=== PATIENT | male | born 1945 | race Caucasian/White ===

== ENCOUNTER 2022-01-17 14:16 | Inpatient (IN) | payer MEDICARE, OTHER ==
[~2022-01-17] VITALS: Ht 165.1 cm; Wt 83.0 kg
[2022-01-17] MEDS ORDERED: IBUPROFEN 600 MG TABLET ONE (14:41)
[2022-01-17] MEDS ORDERED: ACETAMINOPHEN ES 500 MG TABLET ONE (14:41)
--- NOTE | 2022-01-17 14:47 | NUR ---
ALEJANDRO DAUGHTER [phone]
[2022-01-17] MEDS ORDERED: IV NS 0.9% 1,000 ML BAG IV ONE ×2 (15:00→16:30)
[2022-01-17] MEDS ORDERED: ACETAMINOPHEN ES 500 MG TABLET PO ONE (15:00)
[2022-01-17] MEDS ORDERED: IBUPROFEN 600 MG TABLET PO ONE (15:00)
[2022-01-17 15:04] LABS: BASOPHILS # (AUTO) 0.1 K/uL (0.0-0.2); BASOPHILS % (AUTO) 0.5 % (0.0-2.0); HEMATOCRIT 51 % (39-51); HEMOGLOBIN 16.7 g/dL (13.5-17.5); LYMPHOCYTES # (AUTO) 1.7 K/uL (0.8-4.8); LYMPHOCYTES % (AUTO) 13.9 % (20.0-44.0); MEAN CORPUSCULAR HGB CONC 33 g/dl (31.0-36.0); MEAN CORPUSCULAR VOLUME 92 fL (80-96); MONOCYTES # (AUTO) 0.8 K/uL (0.1-1.30); MONOCYTES % (AUTO) 6.7 % (2.0-12.0); NEUTROPHILS # (AUTO) 9.7 K/uL (1.8-8.9); NEUTROPHILS % (AUTO) 78.9 % (43.0-81.0); PLATELET COUNT (AUTO) 122 K/uL (150-450); WHITE BLOOD COUNT (AUTO) 12.3 K/uL (4.3-11.0)
--- NOTE | 2022-01-17 15:04 | NUR ---
COVID SWAB COLLECTED AND SENT TO LAB
[2022-01-17 15:14] LABS: CALCIUM, SERUM 9.6 mg/dL (8.5-10.1); CARBON DIOXIDE 30 mmol/L (21-32); CHLORIDE 100 mmol/L (98-107); CREATININE 1.2 mg/dL (0.6-1.3); GLUCOSE 150 mg/dL (74-106); POTASSIUM 3.8 mmol/L (3.5-5.1); SODIUM SERUM 138 mmol/L (136-145); UREA NITROGEN, BLOOD 32 mg/dL (7-18)
[2022-01-17 15:20] LABS: ALANINE AMINOTRANSFERASE 33 U/L (12-78); ALBUMIN 3.8 g/dL (3.4-5.0); ALKALINE PHOSPHATASE 46 U/L (46-116); ASPARTATE AMINOTRANSFERASE 28 U/L (15-37); BILIRUBIN,DIRECT 0.7 mg/dL (0.0-0.2); BILIRUBIN,TOTAL 5.6 mg/dL (0.2-1.0); TOTAL PROTEIN, SERUM 7.9 g/dL (6.4-8.2)
[2022-01-17] MEDS ORDERED: ASPI-1169 PO (15:36)
[2022-01-17] MEDS ORDERED: SIMVASTATIN (15:36)
[2022-01-17] MEDS ORDERED: B/P MED (15:36)
--- NOTE | 2022-01-17 15:45 | NUR ---
PT TAKEN TO RADIOLOGY
[2022-01-17] MEDS ORDERED: PIPERACILLIN /TAZOBACTAM 3.375 G in IV D5W 50 ML IV ONE (16:00)
--- NOTE | 2022-01-17 16:05 | NUR ---
PT UNABLE TO PROVIDE URINE AT THIS TIME; URINAL AT BEDSIDE.
[2022-01-17] MEDS ORDERED: SIMV10TA98 PO (16:28)
[2022-01-17] MEDS ORDERED: CARV12.52 PO (16:28)
--- NOTE | 2022-01-17 16:33 | NUR ---
URINE SAMPLE COLLECTED AND SENT TO LAB
[2022-01-17] MEDS ORDERED: MAG HYDROX/AL HYDROX/SIMETH 30 ML UDC PO PRN (17:00)
[2022-01-17] MEDS: SENNOSIDES/DOCUSATE SODIUM 1 TAB TABLET PO SCH (17:00)
[2022-01-17] MEDS ORDERED: TEMAZEPAM 15 MG CAPSULE PO PRN (17:00)
[2022-01-17] MEDS ORDERED: Z GUARD REMEDY 4 OZ OINT TP PRN (17:00)
[2022-01-17] MEDS ORDERED: POLYETHYLENE GLYCOL 3350 17 GM POWD.PACK PO PRN (17:00)
[2022-01-17] MEDS ORDERED: MORPHINE SULFATE INJ 2 MG/ML DISP.SYRIN IV PRN (17:00)
[2022-01-17] MEDS ORDERED: ACETAMINOPHEN 325 MG TABLET PO PRN (17:00)
[2022-01-17] MEDS ORDERED: HYDROCODONE/APAP 5/325MG TABLET PO PRN (17:00)
[2022-01-17] MEDS ORDERED: ONDANSETRON HCL/PF 4 MG/2 ML VIAL IVP PRN (17:00)
[2022-01-17] MEDS ORDERED: MAGNESIUM HYDROXIDE 30 ML UDC PO PRN (17:00)
[2022-01-17 17:49] LABS: BILIRUBIN,URINE SMALL (NEGATIVE); COLOR,URINE YELLOW (YELLOW); LEUKOCYTE ESTERASE ,URINE NEGATIVE (NEGATIVE); NITRITE, URINE NEGATIVE (NEGATIVE); PROTEIN,URINE 100 mg/dl (NEGATIVE); UGLUCOSE NEGATIVE (NEGATIVE)
[2022-01-17] MEDS: DOCUSATE SODIUM LIQ 100 MG/10 ML UDC PO SCH (18:00)
[2022-01-17 18:03] LABS: BACTERIA,URINE 1+ /HPF (None Seen); COARSE GRANULAR CASTS,URINE Few /LPF (None Seen); SQUAMOUS EPITHELIAL CELL,UR Few /HPF (None Seen); WBC,URINE 0-2 /HPF (0-3)
--- NOTE | 2022-01-17 19:44 | NUR ---
REPORT GIVEN TO KEVIN 3W RN FOR MAYRA. ALEJANDRO DAUGHTER AWARE REGARDING PT'S ADMISSION.
[2022-01-17 20:00] VITALS: BP 103/55
--- NOTE | 2022-01-17 20:00 | NUR ---
DRY CLEANER HELPERINFORMATION SYSTEMS PLANNER NOTES RECEIVED ON FROM ER THIS 76 YO MALE,ALERT,ORIENTED [id number] CHIEF COMPLAINT OF FEVER FOR FEW DAYS,DX-RIGHT LOWER LOBE PNA.WITH SALINE LOCK RIGHT AC INTACT AND PATENT.NS AT 75ML/HR RATE STARTED.WITH KNOWN HX OF FALL A MONTH AGO,NOTED DRY SMALL WOUND ON RIGHT WRIST.CLEANSE WITH WATER,PAT DRY AN LEAVE OPEN TO AIR.FALL PRECAUTION OBSERVED,BED ON LOWEST POSITION AND LOCKED,BED ALARM TRIGGERED.CALL LIGHT IN REACH,NEEDS ANTICIPATED.
--- NOTE | 2022-01-17 20:11 | NUR ---
PT TRANSFERRED TO 3W VIA ACLS PROTOCOL. VSS. ALL BELONGINGS WITH PT.
[2022-01-17] MEDS ORDERED: PIPERACILLIN /TAZOBACTAM 3.375 G VIAL IV ONE (20:48)
[2022-01-17] MEDS: PIPERACILLIN /TAZOBACTAM 3.375 G in IV D5W 50 ML IV SCH (20:59)
[2022-01-17] MEDS: IV NS 0.9% 1,000 ML IV PRN (20:59)
--- NOTE | 2022-01-17 21:00 | NUR ---
LICENSE AND PERMIT SPECIALIST NOTES DOSE OF ZOSYN 3.375GM IN IV 50ML GIVEN ORDERED.VERIFIED WITH [facility] BECAUSE DOSE WAS GIVEN IN ER AT 1600 AND SHE SAYS OKAY TO GIVE.
[2022-01-18] VITALS: BP_SYST 109; BP_SYST 111; BP_DIAS 59; BP_DIAS 73
[2022-01-18 04:00] VITALS: BP 103/71
[2022-01-18] MEDS ORDERED: PIPERACILLIN /TAZOBACTAM 3.375 G VIAL IV ONE (05:09)
[2022-01-18] MEDS: PIPERACILLIN /TAZOBACTAM 3.375 G in IV D5W 50 ML IV SCH ×3 (05:19→17:34)
[2022-01-18 05:59] LABS: BASOPHILS % (AUTO) 0.2 % (0.0-2.0); EOSINOPHILS % (AUTO) 0.4 % (0.0-6.0); HEMATOCRIT 43 % (39-51); HEMOGLOBIN 14.2 g/dL (13.5-17.5); LYMPHOCYTES # (AUTO) 1.6 K/uL (0.8-4.8); LYMPHOCYTES % (AUTO) 15.2 % (20.0-44.0); MEAN CORPUSCULAR HGB CONC 33 g/dl (31.0-36.0); MEAN CORPUSCULAR VOLUME 93 fL (80-96); MONOCYTES # (AUTO) 1.6 K/uL (0.1-1.30); MONOCYTES % (AUTO) 15.2 % (2.0-12.0); NEUTROPHILS # (AUTO) 7.2 K/uL (1.8-8.9); PLATELET COUNT (AUTO) 88 K/uL (150-450); RED BLOOD CELL COUNT(AUTO) 4.61 MIL/uL (4.5-6.0); WHITE BLOOD COUNT (AUTO) 10.4 K/uL (4.3-11.0)
[2022-01-18 06:15] LABS: CALCIUM, SERUM 8.4 mg/dL (8.5-10.1); CREATININE 0.9 mg/dL (0.6-1.3); PHOSPHORUS 4.7 mg/dL (2.5-4.9); POTASSIUM 3.6 mmol/L (3.5-5.1)
[2022-01-18 06:28] LABS: THYROID STIMULATING HORMONE 0.208 uIU/mL (0.358-3.74)
--- NOTE | 2022-01-18 06:56 | NUR ---
LMSW NOTES SR WITH BBB ON TELE MONITOR,PVC'S AT TIMES.SLEEP WELL AT NIGHT,INCONTINENT OF URINE.IVF INFUSING WELL ON RIGHT AC SALINE LOCK.AFEBRILE.
[2022-01-18 08:00] VITALS: BP 102/66
[2022-01-18] MEDS: DOCUSATE SODIUM LIQ 100 MG/10 ML UDC PO SCH ×2 (08:33→16:43)
[2022-01-18] MEDS: PANTOPRAZOLE 40 MG TABLET.DR PO SCH (08:33)
[2022-01-18] MEDS: SENNOSIDES/DOCUSATE SODIUM 1 TAB TABLET PO SCH (08:40)
[2022-01-18 11:24] LABS: LYMPHOCYTES % (MANUAL) 7 % (16-48); MONOCYTES % (MANUAL) 11 % (0-11.0); NEUTROPHILS % (MANUAL) 82 (42-76)
[2022-01-18] MEDS: IV NS 0.9% 1,000 ML IV PRN (12:35)
--- NOTE | 2022-01-18 12:59 | NUR ---
RN OPENING NOTE PATIENT AWAKE IN BED RESTING. A/O X 3. NO PAIN NOTED AT THIS TIME. ON 4L OXYGEN VIA NC, NO DISTRESS OR SHORTNESS OF BREATH NOTED. IV ACCESS RAC 320G, INTACT, PATENT AND FLUSHING WELL. PATIENT HAVE EXTERNAL TECHNICIAN CHEMICAL CLEANING WITH CURRENT READING OF BBB ANS PVCS AND HR OF 62. FALL AND SAFETY MEASURES IN PLACE, BED IN LOW AND LOCK POSITION, CALL LIGHT AND TABLE WITHIN EASY REACH, SIDE RAILS UP X2. WILL CONTINUE TO MONITOR.
[2022-01-18] MEDS: CHOLECALCIFEROL (VITAMIN D 3) 400 UNIT TABLET PO SCH (13:35)
[2022-01-18 16:21] VITALS: BP 90/58
[2022-01-18] MEDS: CARVEDILOL 12.5 MG TABLET PO SCH (16:43)
[2022-01-18] MEDS: LISINOPRIL (20MG) 20 MG TABLET PO SCH (16:44)
--- NOTE | 2022-01-18 18:45 | NUR ---
RN CLOSING NOTE PATIENT AWAKE IN BED RESTING. A/O X 3. NO PAIN NOTED AT THIS TIME. ON 4L OXYGEN VIA NC, NO DISTRESS OR SHORTNESS OF BREATH NOTED. IV ACCESS RAC 20G, INTACT, PATENT AND FLUSHING WELL. PATIENT HAVE EXTERNAL DIRECTOR FURNITURE WITH CURRENT READING OF SB AND HR OF 58. SCHEDULE MEDICATIONS ADMINISTERED. FALL AND SAFETY MEASURES IN PLACE, BED IN LOW AND LOCK POSITION, CALL LIGHT AND TABLE WITHIN EASY REACH, SIDE RAILS UP X2. WILL ENDORSE TO PROCESS SPECIALIST.
--- NOTE | 2022-01-18 19:30 | NUR ---
RN OPENING NOTE PATIENT IN BED, EYES CLOSED. EASILY AWAKENED. PATIENT IS ABLE TO MAKE NEEDS KNOWN. A/O X 3. TELE MONITOR READS SB 56 BPM. PATIENT IS ON 4LPM VIA NC, TOLERATING WELL, NO SOB NOTED AT THIS TIME. PAITENT DOES NOT VERBALIZE ANY PAIN OR DISCOMFORT. SAFETY MEASURES IN PLACE: BED LOCKED AND IN LOWEST POSITION, CALL LIGHT WITHIN REACH, SIDE RAILS UP. WILL MONITOR PATIENT CLOSELY.
[2022-01-18 20:28] VITALS: BP 103/59
[2022-01-18] MEDS: SIMVASTATIN 10 MG TABLET PO SCH (21:43)
[2022-01-19 00:29] VITALS: BP 113/71
[2022-01-19] MEDS: PIPERACILLIN /TAZOBACTAM 3.375 G in IV D5W 50 ML IV SCH ×4 (00:37→18:07)
[2022-01-19] MEDS: IV NS 0.9% 1,000 ML IV PRN ×2 (01:30→16:43)
[2022-01-19 04:00] VITALS: BP 101/64
--- NOTE | 2022-01-19 05:42 | NUR ---
PATIENT COMPLAINING OF GENERALIZED PAIN 11/16. NORCO 5-325 GIVEN.
--- NOTE | 2022-01-19 06:51 | NUR ---
RN CLOSING NOTE PATIENT IN BED, AWAKE, SITTING UP. PATIENT IS ABLE TO MAKE NEEDS KNOWN. A/O X 3. TELE MONITOR READS SB 54 BPM. PATIENT IS ON 4LPM VIA NC, TOLERATING WELL, NO SOB NOTED AT THIS TIME. RAC 20 G PATENT AND INTACT, INFUSING WELL. PATIENT STILL UNCOMFORTABLE EVEN AFTER PAIN MEDICATION AND REPOSITIONING, PATIENT STATES THAT HE WOULD LIKE TO WALK AFTER BREAKFAST TO RELIEVE BEING UNCOMFORTABLE IN BED. SAFETY MEASURES IN PLACE: BED LOCKED AND IN LOWEST POSITION, CALL LIGHT WITHIN REACH, SIDE RAILS UP. ALL NEEDS MET AND ATTENDED. ALL ORDERS CARRIED OUT. WILL ENDORSE TO DAY SHIFT NURSE FOR MAYRA.
[2022-01-19 07:00] LABS: BASOPHILS % (AUTO) 0.2 % (0.0-2.0); EOSINOPHILS % (AUTO) 4.7 % (0.0-6.0); HEMATOCRIT 41 % (39-51); HEMOGLOBIN 13.4 g/dL (13.5-17.5); LYMPHOCYTES # (AUTO) 1.4 K/uL (0.8-4.8); LYMPHOCYTES % (AUTO) 17.9 % (20.0-44.0); MEAN CORPUSCULAR HGB CONC 33 g/dl (31.0-36.0); MEAN CORPUSCULAR VOLUME 94 fL (80-96); MONOCYTES # (AUTO) 0.8 K/uL (0.1-1.30); MONOCYTES % (AUTO) 9.8 % (2.0-12.0); NEUTROPHILS # (AUTO) 5.4 K/uL (1.8-8.9); NEUTROPHILS % (AUTO) 67.4 % (43.0-81.0); PLATELET COUNT (AUTO) 75 K/uL (150-450); RED BLOOD CELL COUNT(AUTO) 4.34 MIL/uL (4.5-6.0)
--- NOTE | 2022-01-19 07:20 | NUR ---
CHIEF OPHTHALMIC TECHNICIAN OPENING NOTES; RECEIVED PATIENT IN BED AWAKE, ALERT AND ORIENTED X4 AND ABLE TO VERBALIZED NEEDS. NO SOB OR CARDIAC DISTRESS NOTED, ON O2 INHALATION @ 4LPM VIA NC. COMPLAINED DISCOMFORT ON HIS BEHIND. NOTED WITH SACRAL DISCOLORATION. ON JOURNEYMAN POWER PLANT OPERATOR WITH CURRENT READING OF SINUS XI 54BPM. IV ACCESS ON RAC G#20, PATENT AND INTACT AND INFUSING NS @75ML/HR. SAFETY PRECAUTIONS MAINTAINED: BED LOCKED AND IN LOWEST POSITION,SIDE RAILS UP X 2 . CALL LIGHT IN EASY REACH FOR HELP/ ASSISTANCE, WILL MONITOR PT ACCORDINGLY.
[2022-01-19] MEDS: PANTOPRAZOLE 40 MG TABLET.DR PO SCH (07:48)
[2022-01-19 08:00] VITALS: BP_SYST 110; BP_SYST 111; BP_DIAS 60; BP_DIAS 67
--- NOTE | 2022-01-19 08:05 | NUR ---
WOUND CARE CONSULT: PT PRESENTS WITH RAISED DISCOLORATION TO SACRAL AREA EXTENDING TO BUTTOCKS, PRESENT ON ADMISSION. PT STATES THAT HE FELL AT HOME PRIOR TO ADMISSION. DR BLANKENSHIP CALLED FOR SURGICAL CONSULT REQUEST. IN AGREEMENT WITH PLAN OF CARE. CURRENT TOMAS SCORE IS 19.
[2022-01-19 08:11] LABS: CALCIUM, SERUM 8.4 mg/dL (8.5-10.1); CREATININE 0.7 mg/dL (0.6-1.3); POTASSIUM 3.8 mmol/L (3.5-5.1)
[2022-01-19] MEDS: CHOLECALCIFEROL (VITAMIN D 3) 400 UNIT TABLET PO SCH (08:49)
[2022-01-19] MEDS: LISINOPRIL (20MG) 20 MG TABLET PO SCH ×2 (09:00→17:00)
[2022-01-19] MEDS: SENNOSIDES/DOCUSATE SODIUM 1 TAB TABLET PO SCH (09:00)
[2022-01-19] MEDS: CARVEDILOL 12.5 MG TABLET PO SCH ×2 (09:00→17:00)
[2022-01-19] MEDS: DOCUSATE SODIUM LIQ 100 MG/10 ML UDC PO SCH ×2 (09:00→17:00)
[2022-01-19] MEDS ORDERED: DULOXETINE HCL 20 MG CAPSULE.DR PO SCH (09:00)
[2022-01-19 10:14] LABS: THYROID STIMULATING HORMONE 2.171 uIU/mL (0.358-3.74)
[2022-01-19 12:00] VITALS: BP_SYST 102; BP_SYST 96; BP_DIAS 51; BP_DIAS 65
--- NOTE | 2022-01-19 15:09 | NUR ---
RN NOTES: RECIVED A CALL FROM DANIELE (LAB) PT GRAM (+) COCCI IN CLUSTER. INFORMED DR MENA, DR MENA STATED ID SHARON CONSULT. INFORMED COUNTER POCKET SEWER SHARON, WAITING FOR RESPONSE.
[2022-01-19 16:00] VITALS: BP 105/67
--- NOTE | 2022-01-19 18:56 | NUR ---
SENIOR SQL DEVELOPER CLOSING NOTES; PATIENT IN BED AWAKE, ALERT AND ORIENTED X4 AND ABLE TO VERBALIZED NEEDS. NO SOB OR CARDIAC DISTRESS NOTED, ON O2 INHALATION @ 4LPM VIA NC. COMPLAINED DISCOMFORT ON HIS BEHIND. NOTED WITH SACRAL DISCOLORATION. ON INSURANCE ACCOUNT ASSISTANT WITH CURRENT READING OF SINUS RHYTHM 73 BPM. IV ACCESS ON RAC G#20, PATENT AND INTACT AND INFUSING NS @75ML/HR. APPLIED FOAM DRESSING ON HIS SACRUM, ICE PACK GIVEN. SAFETY PRECAUTIONS MAINTAINED: BED LOCKED AND IN LOWEST POSITION,SIDE RAILS UP X 2 . CALL LIGHT IN EASY REACH FOR HELP/ ASSISTANCE, WILL MONITOR PT ACCORDINGLY. ENDORSED TO NOC SHIFT FOR MAYRA.
[2022-01-19 20:00] VITALS: BP 106/65
--- NOTE | 2022-01-19 20:08 | NUR ---
RN OPENING NOTE PATIENT AWAKE IN BED. A/OX4. NO S/S OF DISTRESS, BREATHING WITHOUT DIFFICULTY ON ROOM AIR. RAC #20 INTACT AND PATENT W/ NS 75ML/HR. TELE READS SR 62. SAFETY MEASURES IN PLACE: BED AT LOWEST LEVEL AND LOCKED, RAILS UP X2, CALL PERALES WITHIN REACH. WILL CONTINUE TO MONITOR PATIENT.
[2022-01-19] MEDS: SIMVASTATIN 10 MG TABLET PO SCH (21:59)
[2022-01-19] MEDS ORDERED: DOXYCYCLINE 100 MG VIAL ONE (22:58)
[2022-01-19] MEDS ORDERED: CEFEPIME 1 GM in IV D5W 50 ML IV SCH (23:00)
[2022-01-19] MEDS: DOXYCYCLINE 100 MG in IV D5W 100 ML IV SCH (23:48)
[2022-01-20] VITALS: BP 128/68
--- NOTE | 2022-01-20 03:00 | NUR ---
RN NOTE PATIENT'S IV ACCESS BECAME INFILTRATED. EXTREMITY ELEVATED. IV SUCCESSFULLY REMOVED - CATH AND ALL PARTS INTACT AND ACCOUNTED FOR. NEW IV ACCESS INSERTED SUCCESSFULLY: L-HAND #22. PATIENT STABLE; WILL CONTINUE TO MONITOR PATIENT. Addendum: 01/20/22 at 0540 by SATINDER MONTERO RN PRESSURE DRESSING APPLIED ALBEIT NO ACTIVE BLEEDING.
[2022-01-20 04:00] VITALS: BP 126/72
--- NOTE | 2022-01-20 06:42 | NUR ---
RN CLOSING NOTE PATIENT AWAKE IN BED. A/OX4. NO S/S OF DISTRESS, BREATHING WITHOUT DIFFICULTY ON 4L NC. L-HAND #22 INTACT AND PATENT W/ NS 75ML/HR. TELE READS SR 65 W/ 1ST DEGREE BBB. SAFETY MEASURES IN PLACE: BED LOCKED AND AT LOWEST POSITION, RAILS UP X2, CALL PERALES WITHIN REACH. WILL ENDORSE TO NEXT SHIFT FOR MAYRA.
--- NOTE | 2022-01-20 07:28 | NUR ---
PENCIL MAKER OPENING NOTE RECEIVED PT AWAKE IN BED. A/O X4, ABLE TO MAKE NEEDS KNOWN. ON O2 AT 4L VIA NASAL CANNULA, TOLERATING WELL. NO SOB NOTED. NOT IN ANY SIGN OF RESPIRATORY DISTRESS. PT ON TELE PLATEN BUILDER UP WITH CURRENT READING OF SR WIH 1ST DEGREE HEART BLOCK, HR 62. NO C/O CARDIAC DISTRESS VOICED OUT AT THIS TIME. IV ACCESS IN L HAND G#22 INTACT AND PATENT WITH NS INFUSING AT 75ML/HR. SAFETY MEASURES IN PLACE: BED IN LOWEST AND LOCKED POSITION, BED ALARM ON, SIDE RAILS UPX2, AND CALL LIGHT WITHIN REACH. WILL CONTINUE TO MONITOR.
[2022-01-20 07:56] LABS: CALCIUM, SERUM 8.7 mg/dL (8.5-10.1); CREATININE 0.6 mg/dL (0.6-1.3); POTASSIUM 4.2 mmol/L (3.5-5.1)
[2022-01-20 08:00] VITALS: BP 111/63
[2022-01-20] MEDS: PANTOPRAZOLE 40 MG TABLET.DR PO SCH (08:10)
[2022-01-20 08:17] LABS: BASOPHILS % (AUTO) 0.2 % (0.0-2.0); EOSINOPHILS % (AUTO) 3.3 % (0.0-6.0); HEMATOCRIT 42 % (39-51); LYMPHOCYTES # (AUTO) 0.8 K/uL (0.8-4.8); MEAN CORPUSCULAR HGB CONC 33 g/dl (31.0-36.0); MEAN CORPUSCULAR VOLUME 94 fL (80-96); MONOCYTES # (AUTO) 0.7 K/uL (0.1-1.30); MONOCYTES % (AUTO) 8.1 % (2.0-12.0); NEUTROPHILS # (AUTO) 6.9 K/uL (1.8-8.9); NEUTROPHILS % (AUTO) 79.4 % (43.0-81.0); PLATELET COUNT (AUTO) 87 K/uL (150-450); RED BLOOD CELL COUNT(AUTO) 4.54 MIL/uL (4.5-6.0); WHITE BLOOD COUNT (AUTO) 8.7 K/uL (4.3-11.0)
[2022-01-20] MEDS: CEFEPIME 2 GM in IV D5W 100 ML IV SCH ×2 (08:58→19:32)
[2022-01-20] MEDS: CARVEDILOL 12.5 MG TABLET PO SCH ×2 (09:00→16:51)
[2022-01-20] MEDS: LISINOPRIL (20MG) 20 MG TABLET PO SCH ×2 (09:00→16:52)
[2022-01-20 09:16] LABS: CHOLESTEROL 100 mg/dL (<200); HDL CHOLESTEROL 29 mg/dL (40-60); LDL 64 mg/dL (0-99); TRIGLYCERIDES 45 mg/dL (30-150)
[2022-01-20] MEDS: DOCUSATE SODIUM LIQ 100 MG/10 ML UDC PO SCH ×2 (09:28→16:51)
[2022-01-20] MEDS: CHOLECALCIFEROL (VITAMIN D 3) 400 UNIT TABLET PO SCH (09:29)
[2022-01-20] MEDS ORDERED: DULOXETINE HCL 20 MG CAPSULE.DR PO SCH (09:29)
[2022-01-20] MEDS: SENNOSIDES/DOCUSATE SODIUM 1 TAB TABLET PO SCH (09:29)
[2022-01-20] MEDS: DOXYCYCLINE 100 MG in IV D5W 100 ML IV SCH ×2 (09:30→21:12)
[2022-01-20 13:28] LABS: BASOPHILS % (MANUAL) 0 % (0.0-2.0); EOSINOPHILS % (MANUAL) 3 % (0-4); LYMPHOCYTES % (MANUAL) 8 % (16-48); MONOCYTES % (MANUAL) 5 % (0-11.0); NEUTROPHILS % (MANUAL) 84 (42-76)
[2022-01-20 16:00] VITALS: BP 108/53
[2022-01-20] MEDS: IV NS 0.9% 1,000 ML IV PRN (16:35)
--- NOTE | 2022-01-20 17:38 | NUR ---
RN NOTE PT C/O ITCHINESS AND BACK PAIN WITH PAIN SCALE LEVEL OF 8/10. PER PT HE TAKES HYDROCORTISONE 2.5 % CREAM FOR ITCHING AND LIDOCAINE 5% FOR HIS CHRONIC BACK PAIN AND REQUESTED FOR THE SAME ORDER. CALLED [facility], AND AGREED TO PT'S REQUEST AND ORDERED HYDROCORTISONE 2.5% CREAM BID PRN AND LIDOCAINE 5% Q24HRS TD.
[2022-01-20] MEDS ORDERED: HYDROCORTISONE 2.5% CREAM 28.4 GM TUBE TP PRN (18:00)
[2022-01-20] MEDS ORDERED: LIDOCAINE 5% (PATCH) 1 EA PATCH TP SCH (18:00)
--- NOTE | 2022-01-20 19:19 | NUR ---
LIVESTOCK FARMERS CLOSING NOTE PT AWAKE IN BED. A/O X4, ABLE TO MAKE NEEDS KNOWN. ON O2 AT 3L VIA NASAL CANNULA, TOLERATING WELL. NO SOB NOTED. NOT IN ANY SIGN OF RESPIRATORY DISTRESS. PT ON TELE BI DATA ARCHITECT WITH CURRENT READING OF SR WIH 1ST DEGREE HEART BLOCK, HR 68. NO C/O CARDIAC DISTRESS VOICED OUT AT THIS TIME. IV ACCESS IN LAC G#20 INTACT AND PATENT WITH NS INFUSING AT 75ML/HR. ALL NEEDS ATTENDED. KEPT CLEAN AND COMFORTABLE. SAFETY MEASURES IN PLACE: BED IN LOWEST AND LOCKED POSITION, BED ALARM ON, SIDE RAILS UPX2, AND CALL LIGHT WITHIN REACH. ENDORSED TO PLATE MAKER ZINC NURSE FOR MAYRA.
--- NOTE | 2022-01-20 19:32 | NUR ---
PEANUT BUTTER MAKER OPENING NOTE PT AWAKE IN BED. A/O X4, ABLE TO MAKE NEEDS KNOWN. ON O2 AT 3L VIA NASAL CANNULA, TOLERATING WELL. NO SOB NOTED. NOT IN ANY SIGN OF RESPIRATORY DISTRESS. PT ON TELE HYDROELECTRIC PLANT STRUCTURAL ENGINEER WITH CURRENT READING OF SR WIH 1ST DEGREE HEART BLOCK, HR 68. NO C/O CARDIAC DISTRESS VOICED OUT AT THIS TIME. IV ACCESS IN LAC G#20 INTACT AND PATENT WITH NS INFUSING AT 75ML/HR. ALL NEEDS ATTENDED. KEPT CLEAN AND COMFORTABLE. SAFETY MEASURES IN PLACE: BED IN LOWEST AND LOCKED POSITION, BED ALARM ON, SIDE RAILS UPX2, AND CALL LIGHT WITHIN REACH.
[2022-01-20 20:00] VITALS: BP 119/61
[2022-01-20] MEDS: SIMVASTATIN 10 MG TABLET PO SCH (21:13)
[2022-01-21 05:58] LABS: CALCIUM, SERUM 8.7 mg/dL (8.5-10.1); CARBON DIOXIDE 38 mmol/L (21-32); CHLORIDE 107 mmol/L (98-107); CREATININE 0.6 mg/dL (0.6-1.3); GLUCOSE 99 mg/dL (74-106); POTASSIUM 3.9 mmol/L (3.5-5.1); SODIUM SERUM 143 mmol/L (136-145); UREA NITROGEN, BLOOD 11 mg/dL (7-18)
--- NOTE | 2022-01-21 06:40 | NUR ---
BROADLOOM WEAVER CLOSING NOTE PT AWAKE IN BED. A/O X4, ABLE TO MAKE NEEDS KNOWN. ON O2 AT 3L VIA NASAL CANNULA, TOLERATING WELL. NO SOB NOTED. NOT IN ANY SIGN OF RESPIRATORY DISTRESS. NO C/O CARDIAC DISTRESS VOICED OUT AT THIS TIME. IV ACCESS IN LAC G#20 INTACT AND PATENT WITH NS INFUSING AT 75ML/HR. ALL NEEDS ATTENDED. KEPT CLEAN AND COMFORTABLE. SAFETY MEASURES IN PLACE: BED IN LOWEST AND LOCKED POSITION, BED ALARM ON, SIDE RAILS UPX2, AND CALL LIGHT WITHIN REACH. WILL ENDORSE TO DAY SHIFT NURSE.
--- NOTE | 2022-01-21 07:49 | NUR ---
MS RN OPENING NOTE RECEIVED PT AWAKE IN BED. A/O X4, ABLE TO MAKE NEEDS KNOWN. ON O2 AT 3L VIA NASAL CANNULA, TOLERATING WELL. NO SOB NOTED. NOT IN ANY SIGN OF RESPIRATORY DISTRESS. IV ACCESS IN LAC G#20 INTACT AND PATENT WITH NS INFUSING AT 75ML/HR. SAFETY MEASURES IN PLACE: BED IN LOWEST AND LOCKED POSITION, BED ALARM ON, SIDE RAILS UPX2, AND CALL LIGHT WITHIN REACH. WILL CONTINUE TO MONITOR.
[2022-01-21 08:00] VITALS: BP 156/71
[2022-01-21] MEDS: CEFEPIME 2 GM in IV D5W 100 ML IV SCH ×2 (08:00→09:08)
[2022-01-21] MEDS: DOCUSATE SODIUM LIQ 100 MG/10 ML UDC PO SCH (08:45)
[2022-01-21] MEDS: PANTOPRAZOLE 40 MG TABLET.DR PO SCH (08:45)
[2022-01-21] MEDS: LISINOPRIL (20MG) 20 MG TABLET PO SCH (08:48)
[2022-01-21 08:49] VITALS: BP 156/71
[2022-01-21] MEDS: CARVEDILOL 12.5 MG TABLET PO SCH (08:49)
[2022-01-21] MEDS: CHOLECALCIFEROL (VITAMIN D 3) 400 UNIT TABLET PO SCH (08:49)
[2022-01-21] MEDS: SENNOSIDES/DOCUSATE SODIUM 1 TAB TABLET PO SCH (08:52)
[2022-01-21] MEDS ORDERED: DOXYCYCLINE HYCLATE (100 MG) 100 MG TABLET PO SCH (09:00)
--- NOTE | 2022-01-21 11:15 | NUR ---
AMA RN NOTE PT VERBALIZED OF WANTING TO LEAVE THE UNIT AGAINST MEDICAL ADVICE. EXPLAINED THE RISK OF LEAVING AT CURRENT UNSTABLE CONDITION, STILL STRONGLY WANTS TO LEAVE AND GO HOME. IV ACCESS IN LAC G#20 REMOVED WITH NO ACTIVE BLEEDING NOTED. DRY PRESSURE DRESSING APPLIED AT SITE. PT REFUSED EDUCATIONAL MATERIALS OR DISCHARGE DOCUMENTS TO BRING HOME WITH HIM. AMA FORM SIGNED BY PT. NAME BAND REMOVED. PT LEFT AT 1105 ACCOMPANIED BY DENSITOMETRIST, VIA WHEELCHAIR AND PICKED UP BY SON. AND CHARGED NURSE AWARE OF PT LEAVING AGAINST MEDICAL ADVICE.
== END 2022-01-21 10:50 | disposition left against medical advice (07) | DRG 871 ==
LOC: ER 14:56 → MED 19:18 → TELE 21:16 → MED 01-20 20:58
PROVIDERS: ADMIT Nurse Practitioner Acute Care; ATTEND Nurse Practitioner Acute Care
DX: A41.9 Sepsis, unspecified organism (principal); J15.9 Unspecified bacterial pneumonia; N17.0 Acute kidney failure with tubular necrosis; J96.01 Acute respiratory failure with hypoxia; I25.10 Atherosclerotic heart disease of native coronary artery without angina pectoris; D69.6 Thrombocytopenia, unspecified; I10 Essential (primary) hypertension; Z79.82 Long term (current) use of aspirin; Z79.899 Other long term (current) drug therapy; E86.0 Dehydration; E78.5 Hyperlipidemia, unspecified; R73.9 Hyperglycemia, unspecified; N20.0 Calculus of kidney; Z68.28 Body mass index [BMI] 28.0-28.9, adult; E66.9 Obesity, unspecified; Z91.81 History of falling; L89.326 Pressure-induced deep tissue damage of left buttock; S30.0XXA Contusion of lower back and pelvis, initial encounter; W19.XXXA Unspecified fall, initial encounter; Y92.9 Unspecified place or not applicable; Z87.891 Personal history of nicotine dependence; K56.41 Fecal impaction
CPT/HCPCS: 36415; 70450-TC; 70486-TC; 71045-TC; 71250-TC; 72170-TC; 80048-TC; 80061-TC; 80076-TC; 81001; 83605-TC; 83735-TC; 84100-TC; 84439-TC; 84443-TC; 84481; 84484-TC; 85025-TC; 85378-TC; 85730-TC; 86140-TC; 87040-TC; 87081-TC; 87086-TC; 93307-TC; 97116-TC; 97530-TC; A4349; C9803; G0378; J0692; J2543; J3490; J7030; J7060